=== PATIENT | male | born 1975 | race Caucasian/White ===

== ENCOUNTER 2023-10-16 10:15 | Emergency (ER) | payer MEDICAID, OTHER ==
[~2023-10-16] VITALS: Ht 185.4 cm; Wt 73.2 kg
[2023-10-16 10:17] VITALS: TEMP 98.2
[2023-10-16] MEDS ORDERED: NALT50TA5 PO (11:50)
[2023-10-16] MEDS ORDERED: CHLO25CA10 PO ×3 (11:56→12:11)
[2023-10-16] MEDS: LORazepam 1 MG tablet PO ONE (12:21)
[2023-10-16 12:24] VITALS: BP 152/98; PULSE 83; RESP 14; O2SAT 99
== END 2023-10-16 12:50 | disposition home or self-care (01) ==
LOC: ER 10:15
DX: F10.239 Alcohol dependence with withdrawal, unspecified (principal); Z79.899 Other long term (current) drug therapy; Y90.9 Presence of alcohol in blood, level not specified
CPT/HCPCS: 99284

== ENCOUNTER 2024-05-10 07:49 | Emergency (ER) | payer MEDICAID ==
[~2024-05-10] VITALS: Ht 185.4 cm; Wt 73.2 kg
[~2024-05-10 07:49] MED LIST: CHLO25CA10 PO; NALT50TA5 PO
[2024-05-10 07:56] VITALS: BP 122/87; PULSE 78; O2SAT 94
[2024-05-10] MEDS: normal saline 1000ml 1,000 ML IV ONE (09:40)
[2024-05-10 10:36] VITALS: RESP 16
[2024-05-10] MEDS: ketorolac trometh 30MG/ML vial 30 MG/ML VIAL IV ONE (10:36)
[2024-05-10] MEDS: metoclopramide 5 mg/ml inj IV ONE (10:37)
[2024-05-10] MEDS: diphenhydrAMINE 50 mg/ml inj IV ONE (10:37)
[2024-05-10 11:32] VITALS: TEMP 96.6
== END 2024-05-10 11:33 | disposition home or self-care (01) ==
LOC: ER 07:50
DX: B34.9 Viral infection, unspecified (principal); M54.9 Dorsalgia, unspecified; R51.9 Headache, unspecified; Z79.899 Other long term (current) drug therapy
CPT/HCPCS: 71045; 87502; 87503; 96361; 96374; 96375; 99284; J1200; J1885; J2765; J7030

== ENCOUNTER 2024-12-23 09:58 | Emergency (ER) | payer MEDICAID ==
[~2024-12-23] VITALS: Ht 185.4 cm; Wt 67.4 kg
[2024-12-23 10:11] VITALS: TEMP 98.2
--- NOTE | 2024-12-23 10:59 | RADIOLOGY REPORT ---
CLINICAL INDICATION: ELBOW PAIN TECHNIQUE: Left DI ELBOW, COMPLETE (3VW MIN), DI FOREARM,INCL.ONE JOINT Comparison: DI FOREARM,INCL.ONE JOINT on DOS: 12/23/24 FINDINGS/IMPRESSION: : There is no evidence of acute fracture or dislocation. Soft tissues are unremarkable.
--- NOTE | 2024-12-23 12:05 | Physician Documentation ---
History of Present Illness ~ Chief Complaint: Arm Pain Stated Complaint: L ARM PAIN Time Seen by MD: 10:28 OK to notify your PCP?: Yes Primary Medical Doctor: NONE Source: patient, RN/ HPI Patient is seen today with complaints of pain of his left elbow stating that he was playing basketball and accidentally hyperextended his left elbow slightly a few weeks ago. Patient states it still been hurting in the medial aspect and states he does have some numbness and tingling of his small digit of the left hand. He has no other concern or complaint at this time. 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 PRN for alcohol withdrawal Review of Systems Constitutional: Denies: chills, fever, weakness Eyes: Denies: pain, blurred vision ENT: Denies: ear pain, nose pain, throat pain, mouth pain Respiratory: Denies: cough, shortness of breath Cardiovascular: Denies: chest pain, palpitations Gastrointestinal: Denies: abdominal pain, nausea, vomiting Genitourinary: Denies: burning, dysuria Male Genitalia: Denies: penile discharge, testicular pain Neurological: Denies: headache, dizziness Musculoskeletal: Denies: pain, swelling Integumentary: Denies: rash, lesions Allergic/Immunologic: Denies: hives, itching Hematologic/Lymphatic: Denies: no symptoms reported Psychiatric: Denies: depression, anxiety Physical Exam Vital Signs: Temperature: 98.2, Source: Oral, Heart Rate: 66, Respiratory Rate: 18, BP: 141/87, Pulse Oximetry: 98, Weight: 67.400 Oxygen Flow Rate: 0 Physical Exam General: Awake and Alert, no acute distress. HEENT: Conjunctiva pink, Sclera clear, Mucus Membranes moist. Neck: Supple without masses and tenderness. Resp: Unlabored. Lungs clear to auscultation bilaterally. Heart: Regular Rate and rhythm, normal S1 and S2 without murmur, rub or gallop. Musculoskeletal Patient on exam does have Tinel's sign positive of the left elbow. He is neurovascularly intact distally. He has no tenderness to palpation of the medial or lateral epicondyles and has near full range of motion of the left elbow. Patient has motor function intact distally. Extremities: No cyanosis,clubbing or edema. Skin: Warm and Dry. Progress Results/Orders Results/Orders Vital Signs 12/23/24 10:11 Temp 98.2 Pulse 66 Resp 18 B/P (MAP) 141/87 Pulse Ox 98 O2 Flow Rate 0 EKG/XRAY/CT/US/VASC/MRI Bone/Soft Tissue X-Ray (Ext.) : Additional Comment X-ray of forearm and elbow interpreted by myself today showed no sign of acute fracture, bones in anatomic alignment, no osteolytic or blastic lesions. DIAGNOSTIC RADIOLOGY Patient: GARRETT DESIR Medical Record: [id number] [facility] 1975, Age: 49 Sex: Male Location: ER Patient Status: [facility] ER Service Date/Time: 12/23/241050 Ordering Physician: FANTA BIALEY MD Exam: ELBOW, COMPLETE (3VW MIN) CLINICAL INDICATION: ELBOW PAIN TECHNIQUE: Left DI ELBOW, COMPLETE (3VW MIN), DI FOREARM,INCL.ONE JOINT Comparison: DI FOREARM,INCL.ONE JOINT on DOS: 12/23/24 FINDINGS/IMPRESSION: : There is no evidence of acute fracture or dislocation. Soft tissues are unremarkable. Electronically Signed by:ABDULLAHI DINERO MD Date & Time: 12/23/241056 Dictated by: ABDULLAHI DINERO MD Dictation date and time: 12/23/241056 Primary Care Provider: NO PRIMARY CARE PROVIDER cc: FANTA BAILEY MD ~ Medical Decision Making Findings Patient is seen today with complaints of pain of his left elbow stating that he was playing basketball and accidentally hyperextended his left elbow slightly a few weeks ago. Patient states it still been hurting in the medial aspect and states he does have some numbness and tingling of his small digit of the left hand. He has no other concern or complaint at this time. Patient will continue with conservative management at this time with Tylenol ibuprofen as needed for pain relief. Patient will follow up with primary care in seven days if no better as needed sooner for referral to physical therapy or policy specialist for further eval and treatment. Return to ED with any worsening, concerning or changing symptoms. Departure Disposition: HOME / SELF CARE / HOMELESS Impression: Primary Impression: Elbow pain Qualified Codes: M25.522 - Pain in left elbow Condition: Stable Discharge Instructions: Sprain, [id number] Additional Instructions: Patient will continue with conservative management at this time with Tylenol ibuprofen as needed for pain relief. Patient will follow up with primary care in seven days if no better as needed sooner for referral to physical therapy or policy specialist for further eval and treatment. Return to ED with any worsening, concerning or changing symptoms. Referrals: NO PRIMARY CARE PROVIDER (PCP) Signature Scribe Signature: No scribe Attestation: No scribe PADMINI FELTON PAC Dec 23, 2024 12:05
[2024-12-23 12:33] VITALS: BP 150/85; PULSE 74; RESP 16; O2SAT 100
== END 2024-12-23 12:20 | disposition home or self-care (01) ==
LOC: ER 09:58
DX: M25.522 Pain in left elbow (principal)
CPT/HCPCS: 73080; 73090; 99284